=== PATIENT | female | born 1960 | race Caucasian/White ===

== ENCOUNTER → 2021-11-22 09:00 | Outpatient (CLI) | payer OTHER, SELFPAY ==
--- NOTE | ~2021-11-22 | CT_ITS ---
EXAMINATION: CT abdomen pelvis wo con DATE: 11/22/2021 09:23 INDICATION: Ventral abdominal hernia. History of bariatric surgery in July 2021 TECHNIQUE: Computed tomography (CT) of the abdomen and pelvis was performed without intravenous contr ast. Automated exposure control and iterative reconstruction technique were employed. Exam dose: 106 7.31 mGy-cm total exam DLP. COMPARISON: None. FINDINGS: Lung bases are clear. Normal heart size. Coronary artery calcification. There is high density at the region of the mitral valve which may be due to mitral valve calcificatio n or replacement. Clinical correlation is advised. No pericardial or pleural effusion. Small sliding hiatal hernia. Postoperative change of the stomach related to clinically reported baria tric surgery. There are at least 2 up to 2.5 cm calcified gallstones. No gallbladder wall thickening or pericholecy stic fluid or fat stranding is evident. No bile duct or pancreatic duct dilatation. No hepatic, splenic, pancreatic, and adrenal or renal space-occupying mass lesion. No urinary tract c alculus or hydroureteronephrosis. There is atherosclerotic calcification of the abdominal aorta. No abdominal aortic aneurysm. No intra peritoneal or retroperitoneal or pelvic mass lesion or adenopathy or ascites. There are numerous diverticula of the sigmoid and to a lesser extent descending colon and transverse colon. No CT evidence of diverticulitis. Normal appendix. The urinary bladder, uterus and adnexal areas are unremarkable. There is a large multi septated fat-containing umbilical hernia measuring up to 7.6 cm transverse and 6 cm anteroposterior and 6.5 cm vertical dimension. Diffuse idiopathic skeletal hyperostosis of the lower thoracic and upper lumbar spine. There is mildly severe degenerative disc disease and grade 1 anterolisthesis at L4-5. Degenerative ch kash at the apophyseal joints of the lumbar and lumbosacral spine. No suspicious osteolytic or osteoblastic lesions. Bilateral hip osteoarthritis. IMPRESSION: 7.6 x 6 x 6.5 cm multiseptated fat-containing umbilical hernia Status post gastric bypass surgery Small sliding hiatal hernia Diverticulosis of the colon; no CT evidence of diverticulitis Cholelithiasis Reviewed, dictated and finalized at Location A. Reviewed, dictated and finalized at location B. GRINDER
== END ==
PROVIDERS: PCP Family Medicine Sports Medicine
DX: K43.9 Ventral hernia without obstruction or gangrene (principal); K80.20 Calculus of gallbladder without cholecystitis without obstruction; K57.30 Diverticulosis of large intestine without perforation or abscess without bleeding; K44.9 Diaphragmatic hernia without obstruction or gangrene; K42.9 Umbilical hernia without obstruction or gangrene
CPT/HCPCS: 74176

== ENCOUNTER 2025-03-22 15:38 | Outpatient (CLI) | payer BC, SELFPAY ==
--- NOTE | ~2025-03-22 | DEXA_ITS ---
Bone Density Report Name: RENETTA WALTER Age: 64 Sex: Female Ethnicity: White Date of : 1960 Indication: postmenopausal; screening for osteoporosis; height loss; Referring Provider: CAROLINA, CJ Dixon Study: Bone densitometry was performed. Exam Date: March 22, 2025 Accession number: [id number] Bone Density: Region BMD T-score Z-score Classification AP Spine(L2, L3, L4) 1.443 3.3 5.3 Normal Femoral Neck (Left) 0.824 -0.2 1.4 Normal Total Hip (Left) 1.042 0.8 2.1 Normal Femoral Neck (Right) 0.892 0.4 2.0 Normal Total Hip (Right) 1.052 0.9 2.2 Normal Total Hip Mean 1.047 0.9 2.2 Normal World Health Organization criteria for BMD impression classify patients as: Normal (T-score at or above -1.0), Osteopenia (T-score between -1.0 and -2.5), or Osteoporosis (T-score at or below -2.5). 10-year Fracture Risk: FRAX not reported because: All T-scores for Spine Total, Hip Total, Femoral Neck at or above -1.0 Clinical Information Provided by Patient: Patient maximum height was 63 Menopause Age: 48 No regular weight bearing exercise Does not regularly consume dairy products Onset of menses at age 8 Number of children 1 Impression: The patient has normal bone mass. Discussion: BONE DENSITY IS ABOVE THE MINIMUM DESIRABLE LEVEL AT ALL SKELETAL SITES TESTED. This patient?s bone mineral density is above the minimum desirable level (T-score -1.0 or better) at all sites measured. The patient should follow a healthful lifestyle (good nutrition with adequate calcium and vitamin D, and appropriate weight-bearing exercise). Follow-Up: Consider repeating this study in 5 years or sooner if there is some new clinical indication. Reported by: NIKKI on 03/22/2025 4:25:00 PM. Reviewed, dictated and finalized at location A.
--- OUTSIDE RECORDS SUMMARY | 2025-03-22 17:23 | XMS_ITS | CONTINUITY OF CARE DOCUMENT ---
Author Name cesar guerrero Address Unknown Organization [facility] Address [address] [place] [address] Phone [phone] Care Team Providers Care Yard Switch Operator Name Role Phone Kian WILSON, Marbin Unavailable [phone] JONNIE FERRARO MD Unavailable JONNIE FERRARO MD Unavailable PROBLEMS Condition Status Date Provider Notes DM - type 2 active Marbin Langston MD Hyperlipidemia active Marbin Langston MD HTN--echo ef 65%, 05/2021 active Marbin miller MD Morbid obesity active Marbin Langston MD Family History of Hypertension: active Gera Langston MD Cardiology examination completed 2 - Marbin Langston MD Osteoarthritis active Marbin Langston MD Preoperative cardiovascular examination--gastric sleeve---Stress nuc normal perfusion ef 65% 05/2021 active Marbin Langston MD Abnormal electrocardiogram active Marbin paul MD ENCOUNTERS Date Type Provider Location Encounter Diag nosis - In-person encounter Office Visit Marbin Langston MD [facility] Family History of Hypertension:Cardiology examinationOsteoarthritisPreoperative cardiovascular examination--gastric sleeve---Stress nuc normal perfusion ef 65% bnormal electrocardiogram VITAL SIGNS Date Observation Value Provider Body Mass Index (Ratio) 58.16 kg/m2 Gera Langston MD blood pressure, diastolic 70 mm[Hg] Rajni nkLogpari blood pressure, systolic 140 mm[Hg] Pinky Luceroogpari blood pressure, resting Yes Nitish rivera Vimal blood pressure, cuff size regular Alok Celis blood pressure, diastolic 70 mm[Hg] Alok Celis blood pressure, systolic 140 mm[Hg] Ivon Celis pulse rate 83 /min Nicole hicks respiratory rate E&M 18 /min Nicole Celis oxygen saturation, oximetry 93 % Nicole Celis weight E&M 318 [lb_av] Nicole hicks height E&M 62 [in_i] Nicole hicks ALLERGIES Allergy Name Onset Date Reaction Criticality Status TRIPLE ANTIBIOTIC PLUS Low Criticali ty active SULFACETAMIDE SODIUM Low Criticality active HISTORY OF MEDICATION USE Medication Status Instructions Dates Provider Indications Com ments PX ALLERGY RELIEF D (LORATID) 5-120 MG ORAL TABLET EXTENDED RELEASE 12 HOUR active take 1 tab daily Nicole Celis VITAMIN D3 50 MCG (2000 UT) ORAL TABLET CHEWABLE active take 1 tab dialy Nicole Celis VITAMIN B12 1000 MCG ORAL TABLET EXTENDED RELEASE active take 1 tab dialy Nicole Celis TERBINAFINE HCL TABLET active take 1 tab dialy Nicole Celis SERTRALINE HCL 25 MG ORAL TABLET active take 1 tab daily Nicole Celis ATORVASTATIN CALCIUM 10 MG ORAL TABLET active take 1 tab dialy Nicole Celis GLIPIZIDE 10 MG ORAL TABLET active take 1 tab dialy Nicole Celis ENALAPRIL MALEATE 10 MG ORAL TABLET active take 1 tab dialy Nicole Celis DICLOFENAC SODIUM 75 MG ORAL TABLET DELAYED RELEASE active take 1 tab daily Nicole Celis METFORMIN HCL ER (MOD) 500 MG ORAL TABLET EXTENDED RELEASE 24 HOUR active take 1 tab three times a day Nicole Celis SOCIAL HISTORY Date Observation Value Provider social history E&M S moking History: Ruthy thomas is a former smoker. Marbin Langston MD social history reviewed E&M revi ewed - no changes required Marbin Langston MD smoking history, tot al pack/day 2 PPD Nicole Celis cigarette use yes Nicole Hensley ll smoking status Former smoker Nicole chang FAMILY HISTORY Family Member Condition Father Family History of Hy pertension: Father Family History of Di abetes: INSURANCE PROVIDERS Payer name Policy type / Coverage type [place] red democrat ID CIGNA [id number] Security [id number] ADVANCE DIRECTIVES Name Date [employer] Date Name Performer [id number],S, Yony Reynosoza i [id number],S, Yony Rodriguezmedza i [id number],S, Yony Ahmedza i [id number],S, Yony Ahmedza i [id number],S, Yony Reynosoza i [id number],S, Yony Reynosoza i [id number],SMarbin MD [id number],SMarbin MD [id number],SMarbin MD [id number],SMarbin MD [id number],SMarbin MD Telehealth Yony Slater Telehealth Yony Slaetr Telehealth Yony Slater Telehealth Yony Slater Telehealth Yonylottie Slater Telehealth Yony Bryon Cardiology New Patient Marbin paul MD Cardiology New Patient Marbin paul MD Cardiology New Patient Marbin paul MD Cardiology New Patient Marbin paul MD Cardiology New Patient Marbin paul MD Date Name Complete Echo Stress Regadenoson HISTORY OF PROCEDURES Procedure Date Procedure Name Provider Procedure Notes S tatus EKG Marbin Langston MD completed
--- OUTSIDE RECORDS SUMMARY | 2025-03-22 17:23 | XMS_ITS | Clinical Summary ---
Author Organization [facility] Address [address] [place] [address] Care Team Providers Care Deicer Inspector Electric Name Role Phone Alireza Contreras MD Primary Care Provider [phone] Source Comments [facility],non-owned Affiliates and Associated Physician Practices is amultiple site organization consisting of ambulatory clinics and hospital sitesin [place], [place], [place] and [place]. This disclosure is being madepursuant to the Care Everywhere program and may not contain all information available regarding this patient. Last updated 18.[facility] readeo Allergies Active Allergy Reactions Criticality Noted Date Comments Sulfur Fever 06/21/2020 Tubgvvri-Utcorbaxfi-Ybojdcjsc Skin Reactions Immunizations Immunization Administration Dates Next Due INFLUENZA VACCINE, QUADR. (F LUZONE; FLULAVAL; FLUARIX; AFLURIA QUADRIVALENT; 6MO+), 0.5 ML (IIV4) 06/21/2020 Social History Tobacco Use Types Packs/Day Years Used Date Smoking Tobacco: Never Assessed Comments Unknown Sex and Gender Information Value Date Recorded Sex Assigned at Not on file Legal Sex Female 3:39 PM CDT Gender Identity Female 06/21/2020 3:48 PM CDT Sexual Orientation Not on file Plan of Treatment Health Maintenance Due Date Last Done Comments BONE DENSITY TESTING 1960 COLOGUARD (AGES 45-75) - COL ON CA SCREENING 1960 COLON MONITORING 1960 COLONOSCOPY - COLON CA SCREENING 1958 CT COLONOGRAPHY - COLON CA SCREENING 1960 Colorectal Cancer Screening 1960 FIT - COLON CA SCREENING 1960 FLEX SIG - COLON CA SCREENING 1960 LIPID TESTING 1960 MAMMOGRAM 1960 HEPATITIS C SCREENING 03/26/1976 DTAP/TDAP/TD VACCINES (1 - Tdap) 1977 PNEUMOCOCCAL VACCINE 50+ (1 of 1 - PCV) 2008 ZOSTER VACCINE (1 of 2) 2008 COVID-19 VACCINE (1 - 2023-2 5 season) 2024 DEPRESSION SCREENING 10/05/2024 INFLUENZA VACCINE (Season Ended) 2025 06/21/20 20 Respiratory Syncytial Virus (RSV) Vaccine Pt: or over 60 yrs (1 - 1-dose 75+ series) 2033 HEPATITIS B VACCINE Aged Out No longe r eligible based on patient's age to complete this topic HIB VACCINE Aged Out No longer eligi ble based on patient's age to complete this topic HPV VACCINE Aged Out No longer eligi ble based on patient's age to complete this topic MENINGOCOCCAL (Group B) VACC INE SHARED DECISION-MAKING Aged Out No longer eligibl e based on patient's age to complete this topic MENINGOCOCCAL GROUPS A/C/Y/W VACCINE Aged Out No longer eligible b ased on patient's age to complete this topic Insurance [facility] Address: [facility] [id number] [place] [address] Care Teams Deicer Inspector Electric Relationship Specialty Start Date End Date Alireza Contreras MD [address] [place] [address] PCP - General Family Medicine 06/21/20
--- OUTSIDE RECORDS SUMMARY | 2025-03-22 17:23 | XMS_ITS | Continuity of Care Document ---
Author Organization [facility] Address [address] [place] [address] Phone Care Team Providers Care River Rat Name Role Phone Andriy Trimble MD Unavailable Unavailable Allergies, Adverse Reactions, Alerts Substance Reaction Status Criticality Sulfa (Sulfonamide Antibiotics) Active No Information Medications Medication Instructions Dosage Effective Dates (start - stop) Status Comments naproxen 500 mg tablet take 1 tablet by oral route 2 times every day with food 500 MG - Active enalapril maleate 10 mg tablet take 1 tablet by oral route every day 10 MG - Active glipizide 5 mg tablet take 1 tablet by oral route every day before meals 5 MG - Active SERTRALINE HCL (unknown strength) take 1 tablet by oral route every day Not Available - Active spironolactone 100 mg tablet take 1 tablet by oral route every day 100 MG - Active DICLOFENAC SODIUM (unknown strength) take 1 tablet by oral route every day Not Available - Active metformin ER 1,000 mg tablet,extended release 24hr take 1 tablet by oral route every day with the evening meal 1000 MG - Active Procedures Procedure Date OFFICE/OUTPATIENT VISIT EST OFFICE/OUTPATIENT VISIT NEW OFFICE/OUTPATIENT VISIT EST OFFICE/OUTPATIENT VISIT EST OFFICE/OUTPATIENT VISIT EST OFFICE/OUTPATIENT VISIT NEW Advance Directives Directive Yes / No Effective Date File Name No Information Encounters Encounter Description Practice Location Reason(s) For Visit Diagnoses Date Provider Providers Copied on Encounter OFFICE/OUTPAT IENT VISIT EST [facility] , [address], [place], [address], [place] tel:[phone] [facility] Primary osteoarthritis of right knee 0 Trimble Andriy. [address], [place], [place], [id number] , [place]. tel: [phone] [facility] , [address], [place], [address], [place] tel:[phone] [facility] Primary osteoarthritis of right knee Oct-2 6- 0 Trimble Andriy. [address], [place], [place], [id number] , [place]. tel: [phone] OFFICE/OUTPAT IENT VISIT NEW [facility] , [address], [place], [address], [place] tel:[phone] [facility] Primary osteoarthritis of right knee Apr-3 0- 0 Trimble Andriy. [address], [place], [place], [id number] , [place]. tel: [phone] OFFICE/OUTPAT IENT VISIT EST [facility] , [address] [facility], [place], [address], [place] tel:[phone] [facility] Acute pain of right knee Apr-3 0- 0 Trimble Andriy. [address], [place], [place], [id number] , [place]. tel: [phone] OFFICE/OUTPAT IENT VISIT EST [facility] , [address], [place], [address], [place] tel:[phone] [facility] Acute pain of right knee 0 Trimble Andriy. [address], [place], [place], [id number] , [place]. tel: [phone] OFFICE/OUTPAT IENT VISIT EST [facility] , [address] [address], [place], [address], [place] tel:[phone] [facility] Acute pain of right kneePrimary osteoarthritis of right knee Jan- 3-202 0 Trimble Andriy. [address], [place], [place], [id number] , [place]. tel: [phone] OFFICE/OUTPAT IENT VISIT NEW [facility] , [address], [place], [address], [place] tel:[phone] [facility] Body mass index (BMI) 50.0-59.9, adultElevated blood-pressure reading, w/o diagnosis of htnAcute pain of right knee 0 Atilio Ashraf. [address], [place], [place], [id number] , [place]. tel: [phone] Family History Family Member Type Diagnosis Age At Onset Mother Problem (finding) Alive and well Aunt Problem (finding) cancer of colon daughter Problem (finding) Cancer, Leukemia father Problem (finding) hypertension cousin Problem (finding) malignant neop lasm of breast in first degree relative father Problem (finding) Diabetes mellitus Payers Payer name Insurance type Covered democrat ID Authorrubena mike(s) Cigna Open Access Plus E2 OT [id number] Social History Type Description Quantity Date Captured Comments Alcohol Use Details Unknown Caffeine Use Details Unknown Tobacco Use Status Smoking Status No Information Sex Female Chief Complaint And Reason For Visit No Information Reason For Referral Reason For Referral No Information Plan Of Treatment Date Type Action Status Referral Ordered: Synvisc 1mg Intrarticular injection RT knee Appointment date/timeframe: 08/20/2020 ordered Referral Ordered: Blood Pressure management: Referral to general practitioner. (related to Elevated blood-pressure reading without diagnosis of hypertension) ordered History Of Present Illness Encounter Date Complaint History Of Prese nt Illness No Information Functional Status Date Functional Assessmen t No Information Instructions Date Instruction Additional Infor mation Giving encouragement to exercise Related to Body mass index (BMI) 50.0-59.9, adult Assessments Type Assessment Date assessment Primary osteoarthritis of right knee Patient Care Teams Name Effective Dates (start - stop) Status Members No Information
== END 2025-03-22 15:39 | disposition home or self-care (01) ==
PROVIDERS: PCP Family Medicine Sports Medicine; Visit Provider Nurse Practitioner
DX: Z13.820 Encounter for screening for osteoporosis (principal); Z78.0 Asymptomatic menopausal state
CPT/HCPCS: 77080

== ENCOUNTER 2025-08-29 09:29 | Outpatient (CLI) | payer BC, SELFPAY ==
--- NOTE | 2025-08-29 | ECG_ITS ---
Test Date: 2025-08-29 10:09:14 Measurements Intervals [place] Rate: 66 P: 87 PA: 128 QRS: 46 QRSD: 88 T: 32 QT: 386 QTc: 407 Interpretive Statements SINUS RHYTHM WITH OCCASIONAL SUPRAVENTRICULAR PREMATURE COMPLEXES IN A BIGEMINAL PATTERN LOW QRS VOLTAGE IN PRECORDIAL LEADS [QRS DEFLECTION < 1.0 mV IN CHEST LEADS] ABNORMAL RHYTHM ECG No previous ECG available for comparison Electronically Signed On 08-29-2025 17:27:08 MASTER MACHINIST by Bj Mcneill M.D.
[2025-08-29 10:21] LABS: Anion Gap 6 mmol/L (4-12); Blood Urea Nitrogen 19 mg/dL (7-17); Calcium 9.8 mg/dL (8.4-10.2); Carbon Dioxide 28 mmol/L (22-30); Chloride 103 mmol/L (98-107); Estimated Glomerular Filt Rate 51; Glucose 126 mg/dL (65-110); Potassium 4.0 mmol/L (3.4-5.0); Sodium 137 mmol/L (137-145)
--- OUTSIDE RECORDS SUMMARY | 2025-08-29 10:26 | XMS_ITS | Clinical Summary ---
Author Organization [facility] Address [address] [place] [address] Care Team Providers Care Swift Tender Name Role Phone Alireza Contreras MD Primary Care Provider [phone] Source Comments [facility],non-owned Affiliates and Associated Physician Practices is amultiple site organization consisting of ambulatory clinics and hospital sitesin [place], [place]. This disclosure is being madepursuant to the Care Everywhere program and may not contain all information available regarding this patient. Last updated 18.[facility] [email or web address] Allergies Active Allergy Reactions Criticality Noted Date Comments Sulfur Fever 06/21/2020 Cbquqsuh-Ayrdmckgii-Azbukoaly Skin Reactions Immunizations Immunization Administration Dates Next [...] 2008 ZOSTER VACCINE (1 of 2) 2008 DEPRESSION SCREENING 10/05/2024 COVID-19 VACCINE (1 - 2024-2 6 season) 2025 INFLUENZA VACCINE (#1) 2025 06/21/2020 Respiratory Syncytial Virus (RSV) Vaccine Pt: or [...] patient's age to complete this topic Insurance [facility] Address: [facility] [id number] [place] [address] Care Teams Swift Tender Relationship Specialty Start Date End Date Alireza Contreras MD [address] [place] [address] PCP - General Family Medicine 06/21/20
== END 2025-08-29 09:30 | disposition home or self-care (01) ==
PROVIDERS: PCP Family Medicine; Visit Provider Nurse Anesthetist, Certified Registered
DX: Z01.818 Encounter for other preprocedural examination (principal); R94.31 Abnormal electrocardiogram [ECG] [EKG]
CPT/HCPCS: 36415; 80048; 93005